=== PATIENT | male | born 1995 | race Caucasian/White ===

== ENCOUNTER 2016-06-02 08:02 | Emergency (ER) | payer SELFPAY ==
[2016-06-02] MEDS ORDERED: DIPHENHYDRAMINE 25 MG CAPSULE PO ONE (08:20)
--- NOTE | 2016-06-02 08:51 | ER NURSING DOCUMENTATION ---
Nurse's Notes [facility] Name:Tae Lieberman Age:21 yrs Sex:Male :1995 Arrival Date:06/02/2016 Time:08:02 Bed4 Private MD: Diagnosis:Allergic Urticaria Presentation: 06/02 08:05 Acuity: DEMETRIUS 2 st 08:05 Presenting complaint: Patient states: pt states he started to notice hives on his back st and arms yesterday. today he feels like it is hard to swallow and that his mouth is dry. pt also states that his voice might bee deeper then usual. Transition of care: patient was not received from another setting of care. Onset: The symptoms/episode began/occurred gradually. Anaphylaxis evaluation, throat feels different and voice change. 08:05 Method Of Arrival: Private Vehicle st Triage Assessment: 08:05 General: Appears in no apparent distress, Behavior is cooperative. Pain: Denies pain. st Respiratory: Respiratory effort is even, unlabored, Respiratory pattern is regular, symmetrical, Breath sounds are clear bilaterally. GI: No deficits noted. Derm: noted two hives on his back. pt also had a message yesterday and has cupping castellanos from that on his upper back. Historical: - Allergies: No known drug Allergies; - Home Meds: 1. None - PMHx: lukemia; - PSHx: spleenal renal shunt; - Tetanus: < 10 years. - Ebola Screening: : Patient denies exposure to infectious person. Patient denies travel to an Ebola-affected area in the 21 days before illness onset. . - Social history: Smoking status: Patient uses tobacco products, light tobacco smoker. Patient/guardian denies using alcohol, marijuana. Screenin:32 Infectious Disease Risk None. Abuse screen: Denies threats or abuse. Denies injuries st from another. pt feels safe at home. Nutritional screening: No deficits noted. Assessment: 08:49 General: pt states his throat is dry but he is otherwise feeling ok. . Respiratory: st Airway is patent Respiratory effort is even, unlabored, Respiratory pattern is regular, symmetrical. Vital Signs: 08:05 BP 132 / 96; Pulse 77; Resp 18; Temp 98.1; Pulse Ox 97% on R/A; Pain 0/10; st 08:46 Pulse 76; Pulse Ox 95% ; st ED Course: 08:02 Patient arrived in ED. ds 08:05 Nena Rodrigues RN is Primary Nurse. st 08:[address] 08:05 Pulse ox on. Diet: Patient given water. st 08:13 Davis Posada MD is Attending Physician. me 08:32 Valuables Remains with patient Patient has correct armband on for positive st identification. Bed in low position. Administered Medications: 08:10 Drug: Benadryl 50 mg; Route: PO; st 08:50 Follow up: Response: No adverse reaction st Outcome: 08:44 Discharge ordered by . me 08:49 Discharged to home ambulatory. st 08:49 Condition: improved 08:49 Discharge instructions given to patient, Instructed on discharge instructions, follow up and referral plans. medication usage, Prescriptions given X 1. 08:50 [address] the ED. st 0314 10:22 Discharge F/U Call: Spoke with: patient. Are you having any pain? no. Have you filled sj your prescriptions? no. Reasons not filled: plans to fill later today Did your discharge instructions answer all of your questions? yes Overall Care on a scale of 1-10 with 10 being the best care, you rate our care as: Other comments: good What is the one thing you feel we could do to improve? Patient's answer: no, everything was good. Signatures: Nena Rodrigues RN RN st Srot, [place], Reg Reg ds Davis Posada MD MD sc Janzen, Sarah sj
--- NOTE | 2016-06-02 08:51 | ER PHYSICIAN DOCUMENTATION ---
Physician Documentation [facility] Name:Tae Lieberman Age:21 yrs Sex:Male :1995 Arrival Date:06/02/2016 Time:08:02 Bed4 Private MD: Davis Berkowitz Disposition: 06/02/16 08:44 Discharged to Home/Self Care. Impression: Allergic Urticaria. - Condition is Good. - Discharge Instructions: HIVES. - Prescriptions for Prednisone 20 mg Oral Tablet - take 2 tablet by ORAL route once daily for 5 days; 10 tablet. - Medical Reconciliation form form. - Follow up: Private Physician; When: As needed; Reason: Worsening of condition. - Problem is new. - Symptoms have improved. HPI: 06/02 08:40 This 21 yrs old Male presents to ER via Private Vehicle with complaints of sc Allergic Reaction. 08:40 The patient presents with rash, that is diffuse, throat swelling sensation, resolved sc since arrival in ER. Onset: The symptom(s)/episode began/occurred yesterday. Associated signs and symptoms: Pertinent positives: hives, Pertinent negatives: abdominal pain, chest pain, headache. Possible causes: The patient has no known obvious cause for the symptoms. At home the patient or guardian has treated the symptoms with nothing. Severity of symptoms: At their worst the symptoms were mild. The patient has experienced a previous episode, approximately 1 years ago, and the symptoms today are exactly the same. Historical: - Allergies: No known drug Allergies; - Home Meds: 1. None - PMHx: lukemia; - PSHx: spleenal renal shunt; - Tetanus: < 10 years. - Ebola Screening: : Patient denies exposure to infectious person. Patient denies travel to an Ebola-affected area in the 21 days before illness onset. . - Social history: Smoking status: Patient uses tobacco products, light tobacco smoker. Patient/guardian denies using alcohol, marijuana. ROS: 08:42 Constitutional: Negative for fever, chills, and weight loss. sc Eyes: Negative for injury, pain, redness, and discharge. Neck: Negative for injury, pain, and swelling. Cardiovascular: Negative for chest pain, palpitations, and edema. Respiratory: Negative for shortness of breath, cough, wheezing, and pleuritic chest pain. Abdomen/GI: Negative for abdominal pain, nausea, vomiting, diarrhea, and constipation. Back: Negative for injury and pain. 08:42 Neuro: Negative for headache, weakness, numbness, tingling, and seizure. va 08:42 ENT: Positive for felt a little tight in throat. 08:42 Skin: Positive for rash. Exam: Constitutional: This is a well developed, well nourished patient who is awake, alert, and in no acute distress. Head/Face: Normocephalic, atraumatic. Eyes: Pupils equal round and reactive to light, extra-ocular motions intact. Lids and lashes normal. Conjunctiva and sclera are non-icteric and not injected. Cornea within normal limits. Periorbital areas with no swelling, redness, or edema. ENT: Nares patent. No nasal discharge, no septal abnormalities noted. Tympanic membranes are normal and external auditory canals are clear. Oropharynx with no redness, swelling, or masses, exudates, or evidence of obstruction, uvula midline. Mucous membranes moist. Neck: Trachea midline, no thyromegaly or masses palpated, and no cervical lymphadenopathy. Supple, full range of motion without nuchal rigidity, or vertebral point tenderness. No meningismus. Cardiovascular: Regular rate and rhythm with a normal S1 and S2. No gallops, murmurs, or rubs. Normal PMI, no JVD. No pulse deficits. 08:43 Respiratory: Lungs have equal breath sounds bilaterally, clear to auscultation and va percussion. No rales, rhonchi or wheezes noted. No increased work of breathing, no retractions or nasal flaring. 08:43 Skin: Appearance: normal except for affected area, urticaria. 08:44 Respiratory: Respirations: normal, Breath sounds: are normal. va Vital Signs: 08:05 BP 132 / 96; Pulse 77; Resp 18; Temp 98.1; Pulse Ox 97% on R/A; Pain 0/10; st 08:46 Pulse 76; Pulse Ox 95% ; st MDM: 08:29 Patient medically screened. va 08:43 Differential diagnosis: anaphylaxis, angioedema, urticaria. Data reviewed: vital signs, va nurses notes, and as a result, I will discharge patient. Counseling: I had a detailed discussion with the patient and/or guardian regarding: the historical points, exam findings, and any diagnostic results supporting the discharge/admit diagnosis, the need for outpatient follow up, to return to the emergency department if symptoms worsen or persist or if there are any questions or concerns that arise at home. 06/02 08:16 Order name: Pulse Ox Continuous; Complete Time: 08:16 st Dispensed Medications: 08:10 Drug: Benadryl 50 mg; Route: PO; st 08:50 Follow up: Response: No adverse reaction st Signatures: Nena Rodrigues RN RN Davis Cullen MD MD va
== END 2016-06-02 08:51 | disposition home or self-care (01) ==
LOC: ER 08:02
DX: L50.0 Allergic urticaria (principal); Z72.0 Tobacco use
CPT/HCPCS: 99283; Q0163